=== PATIENT | male | born 1985 | race Caucasian/White ===

== ENCOUNTER 2024-04-01 09:42 | Emergency (ER) | payer SELFPAY ==
[~2024-04-01] VITALS: Ht 180.3 cm; Wt 81.8 kg
[2024-04-01 09:56] VITALS: BP 138/81; PULSE 78; RESP 18; TEMP 98.4; O2SAT 98
== END 2024-04-01 12:04 | disposition home or self-care (01) ==
LOC: ER 09:44
DX: S60.811A Abrasion of right wrist, initial encounter (principal); R20.0 Anesthesia of skin; R20.2 Paresthesia of skin; M25.531 Pain in right wrist; W22.8XXA Striking against or struck by other objects, initial encounter; Y93.89 Activity, other specified; Y92.89 Other specified places as the place of occurrence of the external cause; Y99.8 Other external cause status
CPT/HCPCS: 29125; 73130; 99283